=== PATIENT | male | born 1970 | race Asian ===

== ENCOUNTER 2020-03-15 10:19 | Outpatient (CLI) | payer OTHER ==
[2020-03-15 16:22] LABS: PLATELET COUNT 224 K/uL (142-355)
[2020-03-15 16:30] LABS: POTASSIUM 4.3 mmol/L (3.6-5.2)
== END 2020-03-15 19:00 | disposition home or self-care (01) ==
LOC: LAB 10:19
PROVIDERS: Nurse Practitioner Family
DX: U07.1 COVID-19 (principal)
CPT/HCPCS: 36415; 80053; 85027; 85379